=== PATIENT | female | born 1995 | race Caucasian/White ===

== ENCOUNTER 2017-12-19 20:42 | Emergency (ER) | payer MEDICAID ==
[~2017-12-19] VITALS: Ht 165.1 cm; Wt 49.9 kg
[~2017-12-19 20:42] MED LIST: AMOXICILLIN 50500 M1 PO; IBUPROFEN 600600 M1 PO; TRAMADOL 50 MG50 MG PO
[2017-12-19] MEDS ORDERED: PRENATAL (20:47)
[2017-12-19 20:59] LABS: URINE BILIRUBIN NEGATIVE (Negative); URINE BLOOD NEGATIVE (Negative); URINE CLARITY CLEAR; URINE COLOR YELLOW; URINE GLUCOSE-RANDOM NEGATIVE (Negative); URINE KETONES NEGATIVE (Negative); URINE NITRITE-REFLEX NEGATIVE (Negative); URINE PROTEIN NEGATIVE (Negative); URINE SPECIFIC GRAVITY <= 1.005 (1.005-1.030); URINE UROBILINOGEN 0.2 E.U./dl (0.2-1.0)
[2017-12-19 21:00] LABS: URINE LEUKOCYTES-REFLEX 2+ (Negative)
[2017-12-19 21:17] LABS: MUCUS None Seen strn/LPF (None Seen); SQUAMOUS >10 Many /LPF (0-3)
[2017-12-19 21:18] LABS: BACTERIA-REFLEX 1-9 Few /HPF (None Seen); CASTS None Seen /LPF (None Seen); CRYSTALS None Seen /LPF (None Seen); URINE RBC None Seen /HPF (0-2); URINE WBC-REFLEX 6-15 Few /HPF (0-5)
[2017-12-19 21:40] LABS: ABSOLUTE BASOPHILS 0.1 thou/uL (0.0-0.2); ABSOLUTE EOSINOPHILS 0.3 thou/uL (0.0-0.7); ABSOLUTE LYMPHOCYTES 2.1 thou/uL (0.8-5.3); ABSOLUTE MONOCYTES 0.7 thou/uL (0.0-1.2); ABSOLUTE NEUTROPHILS 5.8 thou/uL (1.6-8.1); BASOPHILS 1.3 %; EOSINOPHILS 3.4 %; HEMATOCRIT 39.5 % (37.0-47.0); HEMOGLOBIN 13.2 gm/dL (12.0-15.0); LYMPHOCYTES 23.8 %; MCHC 33.3 g/dL (28.0-37.0); MCV 93.1 fL (80.0-100.0); MONOCYTES 7.3 %; MPV 9.3 fl. (7.2-11.1); NUCLEATED RBCS 0 /100WBC; PLATELET COUNT* 189 thou/uL (150-400); POLYS 64.2 %; RBC 4.25 mil/uL (4.20-5.00); RDW-CV 12.5 % (10.5-14.5)
[2017-12-19 21:47] LABS: CREATININE 0.4 mg/dL (0.6-1.3); POTASSIUM 4.5 mmol/L (3.5-5.1)
[2017-12-19 21:51] LABS: ALBUMIN 3.4 g/dL (3.4-5.0); TOTAL BILIRUBIN 0.3 mg/dL (<0.1-1.0); TOTAL PROTEIN 6.2 g/dL (6.4-8.2)
[2017-12-20] MEDS ORDERED: MACROBID 100 M100 M1 PO (01:00)
[2017-12-20 01:18] VITALS: BP 97/55
== END 2017-12-20 01:19 | disposition home or self-care (01) ==
LOC: M.ERS 20:42
PROVIDERS: Nurse Practitioner Family
DX: O23.41 Unspecified infection of urinary tract in pregnancy, first trimester (principal); Z3A.01 Less than 8 weeks gestation of pregnancy; F17.210 Nicotine dependence, cigarettes, uncomplicated

== ENCOUNTER 2020-03-24 13:13 | Emergency (ER) | payer MEDICAID ==
[~2020-03-24] VITALS: Ht 165.1 cm; Wt 50.4 kg
[~2020-03-24 13:13] MED LIST changes: +MACROBID 100 M100 M1 PO; +PRENATAL
[2020-03-24] MEDS ORDERED: BUTALBIT-ACETA1 EACH PO (13:26)
[2020-03-24 15:01] LABS: ABSOLUTE BASOPHILS 0.1 thou/uL (0.0-0.2); ABSOLUTE EOSINOPHILS 0.1 thou/uL (0.0-0.7); ABSOLUTE MONOCYTES 0.4 thou/uL (0.0-1.2); ABSOLUTE NEUTROPHILS 5.1 thou/uL (1.6-8.1); BASOPHILS 1.3 %; EOSINOPHILS 1.5 %; HEMATOCRIT 40.9 % (37.0-47.0); HEMOGLOBIN 13.8 gm/dL (12.0-15.0); MCH 31.4 pg (26.0-34.0); MCHC 33.8 g/dL (28.0-37.0); MCV 92.8 fL (80.0-100.0); MONOCYTES 4.8 %; NUCLEATED RBCS 0 /100WBC; PLATELET COUNT* 255 thou/uL (150-400); POLYS 66.4 %; RBC 4.41 mil/uL (4.20-5.00); RDW-CV 12.9 % (10.5-14.5); WBC 7.7 thou/uL (4.0-11.0)
[2020-03-24 15:06] LABS: CALCIUM 8.9 mg/dL (8.5-10.1); CREATININE 0.7 mg/dL (0.6-1.3); POTASSIUM 3.9 mmol/L (3.5-5.1)
[2020-03-24] MEDS ORDERED: PHENERGAN 25 MG25 M1 PO (15:47)
[2020-03-24 16:17] VITALS: BP 96/56
--- NOTE | 2020-03-25 18:26 | EKG ---
[place] [address] ELECTROCARDIOGRAM REPORT Name: KARLEYPAULINESHAYY Espitia Room: [facility]#: [id number] Admission: 03/24/20 Attend Phys: Discharge: 03/24/20 Date of : 89 Date of Service: 03/24/20 1435 Report #: [id number] THIS REPORT FOR: //name// [facility] ED Test Date: 2020-03-24 Test Time: 14:35:22 Pat Name: SHAYY PEREZ Department: Room: Gender: Zigzagger: : 1995 Requested By: Sapna Loya Order Number: [id number] MD: Aden Welch Measurements Intervals [place] Rate: 62 P: 67 [place]: 162 QRS: 82 QRSD: 78 T: 54 QT: 392 QTc: 398 Interpretive Statements Sinus rhythm No previous ECG available for comparison Electronically Signed On 03-25-2020 18:26:06 CDT by Aden Welch [email or web address] <ELECTRONICALLY SIGNED> By: Aden Welch MD, [facility] 03/25/20 1826 1435 1435 Aden Welch MD, FACC /EPI
== END 2020-03-24 16:18 | disposition home or self-care (01) ==
LOC: M.ERS 13:13
PROVIDERS: Nurse Practitioner Family
DX: G43.009 Migraine without aura, not intractable, without status migrainosus (principal)